=== PATIENT | male | born 1940 | race Caucasian/White ===

== ENCOUNTER 2016-06-12 12:39 | Day surgery (SDC) | payer MEDICARE, OTHER ==
[~2016-06-12] VITALS: Ht 177.8 cm; Wt 94.0 kg
[~2016-06-12 12:39] MED LIST: 0.9% Sodium Chloride 1,000 ML IV SCH; ASPI-956 PO; LEVO125T2 PO; Sodium Chloride LOK Flush 10 mL Syringe IV PRN; fentaNYL-PF 50 mCg/mL 2 mL Inj IVPUSH PRN
[2016-06-12 13:38] VITALS: BP 144/80; PULSE 69; RESP 18; O2SAT 97
[2016-06-12 15:37] VITALS: BP 148/80; PULSE 69; RESP 17; O2SAT 95
[2016-06-12 15:46] VITALS: BP 151/76; PULSE 75; RESP 14; O2SAT 95
[2016-06-12 15:55] VITALS: BP 173/82; PULSE 67; RESP 14; O2SAT 96
--- NOTE | 2016-06-12 16:04 | ENDO ---
[address] [address] ENDOSCOPY PROCEDURE PATIENT: SEB PERRY : 1940 MR#: [id number] ADMIT: 06/12/2016 JOB ID: [id number] DATE OF SERVICE: 06/12/2016 PRIMARY PROVIDER: Perez Humphries MD. PROCEDURE: Colonoscopy with cold forceps polypectomies. INDICATIONS: A 75-year-old male with a personal history of colon polyps, returning for surveillance. EQUIPMENT: Bon'App-Apmetrix L. SEDATION: 1. Versed 3 mg. 2. Fentanyl 75 mcg. COMPLICATIONS: None identified. BOWEL PREPARATION: Fair, adequate exam. PROCEDURE INFORMATION: After the risks and benefits are explained, written and verbal informed consent was obtained. The patient was brought into the endoscopy suite and placed into the left lateral decubitus position. Sedation was achieved using the above-stated medications with the addition of oxygen via nasal cannula. A digital rectal examination was accomplished. No pathology appreciated. The scope was introduced into the rectum and advanced under direct visualization to the level of the cecum, as identified by the appendiceal orifice and ileocecal valve. The scope was slowly withdrawn to carefully examine the mucosa for any defects or lesions. Retroflexed views were avoided in the rectum. Multiple direct views were made through the dentate line for exclusion of pathology. The colon was decompressed. The scope removed from the patient who tolerated the procedure well. FINDINGS: There was a small polyp in the cecum removed with cold forceps. An even more diminutive polyp in the ascending was additionally removed with cold forceps. No other significant pathology was appreciated throughout. ENDOSCOPIC DIAGNOSES: 1. Colon polyps. 2. Otherwise visually unremarkable colonoscopy to cecum. RECOMMENDATIONS: 1. Await histopathology. 2. Repeat colonoscopy in five years.
--- NOTE | 2016-06-14 16:07 | PATH ---
SURGICAL PATHOLOGY Attending Physician:Amauri Richards CASE STATUS: Signed Out PATIENT NAME: SEB PERRY PID: [id number] : 1940 DATE COLLECTED:06/12/2016 00:00 SPECIMEN: 1: Colon, Biopsy 2: Colon, Biopsy CLINICAL HISTORY: 1). CECAL POLYP 2). ASCENDING POLYP FINAL DIAGNOSIS: 1. Cecal Polyp: Sessile serrated adenoma. 2. Ascending Colon Polyp: Tubular adenoma. ICD10 D12.0, D12.2 GROSS DESCRIPTION: The specimen is received in two formalin filled containers labeled with the patient's name. 1). The specimen is sublabeled "cecum polyp" and consists of a 0.2 x 0.2 x 0.2 CM portion of tissue which is entirely submitted in cassette 180. 2). The specimen is sublabeled "ascending polyp" and consists of a 0.2 x 0.2 x 0.2 CM portion of tissue which is entirely submitted in cassette 2A. 06/13/2016 DAC MICRO DESCRIPTION: Please see diagnosis. ICD-9 CODES: CPT CODES: 1: 24617 2: 63154 Electronically Signed Out Natalia Dye MD [facility] [address], [place] [address] Technical component performed at [facility], [facility] [address], [place], [address]
== END 2016-06-12 23:59 | disposition home or self-care (01) ==
LOC: END 12:39
PROVIDERS: ATTEND Internal Medicine Gastroenterology
DX: Z12.11 Encounter for screening for malignant neoplasm of colon (principal); D12.0 Benign neoplasm of cecum; D12.2 Benign neoplasm of ascending colon; Z86.010 Personal history of colon polyps; E03.9 Hypothyroidism, unspecified; Z79.82 Long term (current) use of aspirin
CPT/HCPCS: 45380; G0500; J2250; J3010; J7030